=== PATIENT | male | born 1990 | race Caucasian/White ===

== ENCOUNTER 2017-07-16 09:52 | Emergency (ER) | payer BC ==
[2017-07-16 10:36] VITALS: BP 157/61
--- NOTE | 2017-07-16 11:06 | UC ---
Throat Pain/Nasal Torrey HPI - HPI Summary HPI Summary: Pt presents with sinus symptoms, earache, and ST. He tells me that 5 days ago he developed a ST and sinus pain/pressure/congestion. Over the next few days he began to have left ear pain and feeling as though sounds were muffled. He has been taking mucinex OTC with no relief. Denies headache, fever, chills, cough, SOB, chest pain, abdominal pain, N/V/D/C. - History of Current Complaint Chief Complaint: UCRespiratory Stated Complaint: SORE THROAT EAR PAIN COUGH NAUSEA Time Seen by Provider: 07/16/17 11:05 Hx Obtained From: Patient Severity: Moderate - Allergies/Home Medications Allergies/Adverse Reactions: Allergies Allergy/AdvReac Type Severity Reaction Status Date / Time Amoxicillin Allergy Unknown Unknown Verified 07/16/17 10:37 Reaction Details PMH/Surg Hx/FS Hx/Imm Hx Previously Healthy: Yes - Surgical History Surgical History: None - Family History Known Family History: Positive: Unknown - Social History Occupation: Employed Full-time Lives: Alone Alcohol Use: Occasionally Substance Use Type: None Smoking Status (MU): Current Every Day Smoker Type: eCigarettes Amount Used/How Often: daily use Length of Time of Smoking/Using Tobacco: since age 21 Review of Systems Constitutional: Negative Skin: Negative Eyes: Negative ENT: Sore Throat, Ear Ache, Nasal Discharge, Sinus Congestion, Sinus Pain/ Tenderness Respiratory: Negative Cardiovascular: Negative Gastrointestinal: Negative Neurological: Negative Psychological: Negative All Other Systems Reviewed And Are Negative: Yes Physical Exam Triage Information Reviewed: Yes Appearance: Well-Appearing, Well-Nourished Vital Signs: Initial Vital Signs Temp 98 F 07/16/17 10:32 Pulse 88 07/16/17 10:32 Resp 14 07/16/17 10:32 BP 157/61 07/16/17 10:32 Pulse Ox 99 07/16/17 10:32 Vital Signs Reviewed: Yes Eyes: Positive: Conjunctiva Clear. Negative: Conjunctiva Inflamed, Discharge ENT: Positive: Hearing grossly normal, Pharynx normal, Pharyngeal erythema, Nasal congestion, Nasal drainage, TM bulging - Left ear, TM red - Left ear, Sinus tenderness, Uvula midline. Negative: Tonsillar swelling, Tonsillar exudate, Muffled voice Neck: Positive: Supple, Nontender, No Lymphadenopathy Respiratory: Positive: Chest non-tender, Lungs clear, Normal breath sounds, No respiratory distress, No accessory muscle use Cardiovascular: Positive: RRR, No Murmur, Pulses Normal Neurological: Positive: Alert Psychological: Positive: Age Appropriate Behavior Skin: Negative: rashes Throat Pain/Nasal Course/Dx - Course Course Of Treatment: POC strep negative. Otitis media left ear. He is unsure his reaction to Amoxicillin, but has been told since childhood to avoid it. Will rx for zpak. - Differential Dx/Diagnosis Differential Diagnosis/HQI/PQRI: Influenza, Otitis Media, Pharyngitis, Tonsillitis, URI Provider Diagnoses: Otitis Media left ear Discharge - Discharge Plan Condition: Stable Disposition: HOME Prescriptions: Azithromycin TAB* [Zithromax TAB (Z-CHAPITO) 250 mg #6 tabs] 2 tab PO .TODAY, THEN 1 DAILY #1 chapito Patient Education Materials: Otitis Media (ED) Referrals: No Primary Care Phys,NOPCP [Primary Care Provider] - [facility] – [place] PHYSICIAN REFERRAL [Outside] - 2 Weeks Additional Instructions: If you develop a fever, SOB, chest pain, new or worsening symptoms - please call your PCP or go to the ED. Your blood pressure was high at todays visit. Please see your primary provider within 4 weeks for recheck and re-evaluation.
== END 2017-07-16 11:46 | disposition home or self-care (01) ==
LOC: UCEAST 09:52
DX: H66.92 Otitis media, unspecified, left ear (principal); Z72.89 Other problems related to lifestyle; Z72.0 Tobacco use
CPT/HCPCS: 87651; 99212; G0463

== ENCOUNTER 2018-01-02 10:37 | Emergency (ER) | payer BC, OTHER ==
[2018-01-02 11:01] VITALS: BP 134/84
--- NOTE | 2018-01-02 12:06 | UC ---
UC General HPI - HPI Summary HPI Summary: Patient to urgent care today with his mom. Patient took pre-workout Sunday afternoon, he slept very poorly Sunday night and also noted a weird sensation on his skin as well as a disassociated feeling. Sunday he felt much better attended some activities with his friends slept okay Sunday night this morning woke up feeling like his heart was racing. - History of Current Complaint Hx Obtained From: Patient Onset/Duration: Sudden Onset, Lasting Days - 3 Timing: Constant Pain Intensity: 0 Associated Signs & Symptoms: Positive: Other <Maria Teresa He - Last Filed: 01/02/18 12:34> <Herminia Wyman - Last Filed: 01/02/18 13:22> - History of Current Complaint Chief Complaint: UCAlteredMentalStatus Stated Complaint: PANIC ATTACKS Time Seen by Provider: 01/02/18 11:33 - Allergy/Home Medications Allergies/Adverse Reactions: Allergies Allergy/AdvReac Type Severity Reaction Status Date / Time amoxicillin Allergy Rash Verified 01/02/18 12:47 Home Medications: Home Medications NK [No Home Medications Reported] 01/02/18 [History Confirmed 01/02/18] PMH/Surg Hx/FS Hx/Imm Hx Previously Healthy: Yes - Surgical History Surgical History: Yes Surgery Procedure, Year, and Place: wisdom teeth extraction - Family History Family History: alabuse disorder in father - Social History Occupation: Employed Full-time Lives: Dormitory/Roommates Alcohol Use: Occasionally Substance Use Type: None Smoking Status (MU): Current Every Day Smoker Type: eCigarettes Amount Used/How Often: daily use Length of Time of Smoking/Using Tobacco: since age 21 <Maria Teresa He - Last Filed: 01/02/18 12:34> Review of Systems Constitutional: Negative Skin: Negative Eyes: Negative ENT: Negative Respiratory: Negative Cardiovascular: Palpitations Gastrointestinal: Negative Genitourinary: Negative Motor: Negative Neurovascular: Negative Musculoskeletal: Negative Neurological: Negative Psychological: Other - had out of body experience Sunday and some confusion -- this seemed to get a little better after eating Is Patient Immunocompromised?: No All Other Systems Reviewed And Are Negative: Yes <Maria Teresa He - Last Filed: 01/02/18 12:34> Physical Exam Triage Information Reviewed: Yes Appearance: Well-Appearing, No Pain Distress, Well-Nourished Vital Signs: Initial Vital Signs Temp 97.6 F 01/02/18 10:54 Pulse 64 01/02/18 10:54 Resp 18 01/02/18 10:54 BP 134/84 01/02/18 10:54 Pulse Ox 100 01/02/18 10:54 Vital Signs Reviewed: Yes Eye Exam: Normal Eyes: Positive: Conjunctiva Clear ENT Exam: Normal ENT: Positive: Normal ENT inspection, Hearing grossly normal. Negative: Trismus , Muffled voice, Hoarse voice Dental Exam: Normal Neck exam: Normal Neck: Positive: Supple, Nontender Respiratory Exam: Normal Respiratory: Positive: Chest non-tender, No respiratory distress Cardiovascular Exam: Normal Cardiovascular: Positive: RRR, Brisk Capillary Refill Musculoskeletal Exam: Normal Musculoskeletal: Positive: Strength Intact, No Edema Neurological Exam: Normal Neurological: Positive: Alert, Muscle Tone Normal Psychological Exam: Normal Skin Exam: Normal <Maria Teresa He - Last Filed: 01/02/18 12:34> Vital Signs: Initial Vital Signs Temp 97.6 F 01/02/18 10:54 Pulse 64 01/02/18 10:54 Resp 18 01/02/18 10:54 BP 134/84 01/02/18 10:54 Pulse Ox 100 01/02/18 10:54 <Herminia Wyman - Last Filed: 01/02/18 13:22> Course/Dx - Course Course Of Treatment: Reviewed case with Dr. Wyman. Will transfer to hospital with mother driving for evaluation of symptoms post ingesytion of "Pre work out " - Differential Dx - Multi-Symptom Provider Diagnoses: Ingestion of pre-work out/stimulant <Maria Teresa He - Last Filed: 01/02/18 12:34> Discharge - Sign-Out/Discharge Documenting (check all that apply): Discharge/Admit/Transfer - Billing Disposition and Condition Condition: STABLE Disposition: Home <Maria Teresa He - Last Filed: 01/02/18 12:34> - Billing Disposition and Condition Condition: STABLE Disposition: Home <Herminia Wyman - Last Filed: 01/02/18 13:22> - Discharge Plan Condition: Stable Disposition: HOME Referrals: No Primary Care Phys,NOPCP [Primary Care Provider] - Additional Instructions: David we are discharging you to the emergency department for evaluation of the ingestion of "pre- work out". This medication can cause problems with your kidneys and her electrolytes that you need to be evaluated for Attestation Statement User Type: Provider - I was available for consult. This patient was seen by the HAKEEM. The patient was not presented to, seen by, or examined by me. -Priya <Herminia Wyman - Last Filed: 01/02/18 13:22>
== END 2018-01-02 12:13 | disposition home or self-care (01) ==
LOC: UCEAST 10:37
DX: T50.995A Adverse effect of other drugs, medicaments and biological substances, initial encounter (principal); Y92.9 Unspecified place or not applicable; R00.0 Tachycardia, unspecified; Z88.0 Allergy status to penicillin; F17.210 Nicotine dependence, cigarettes, uncomplicated
CPT/HCPCS: 99212; G0463

== ENCOUNTER 2018-01-02 12:29 | Emergency (ER) | payer OTHER ==
[2018-01-02 14:43] LABS: ABS Basophils 0 10^3/ul (0-0.2); ABS Eosinophils 0 10^3/ul (0-0.6); ABS Lymphocytes 0.9 10^3/ul (1.0-4.8); ABS Monocytes 0.2 10^3/ul (0-0.8); ABS Neutrophils 6.1 10^3/ul (1.5-7.7); ABS Nucleated RBC 0 10^3/ul; Eosinophil % 0.1 % (0-6); Hematocrit 48 % (42-52); Hemoglobin 16.4 g/dl (14.0-18.0); Lymphocyte % 12.5 % (25-47); Mean Corpuscular HGB Conc 34 g/dl (31-36); Mean Corpuscular Hemoglobin 29 pg (27-31); Mean Corpuscular Volume 84 fL (80-94); Mean Platelet Volume 8.1 um3 (7.4-10.4); Nucleated Red Blood Cells % 0.1; Platelet Count 198 10^3/ul (150-450); Red Blood Count 5.67 10^6/ul (4.0-5.4); Red Cell Distribution Width 13 % (10.5-15); White Blood Count 7.2 10^3/ul (3.5-10.8)
[2018-01-02 15:05] LABS: EGFR Non-African American 90.4 (>60)
[2018-01-02] MEDS ORDERED: LORazepam TAB(*) 1 MG PO ONE (16:08)
[2018-01-02 16:20] LABS: Urine Appearance Clear; Urine Blood Negative (Negative); Urine Color Straw; Urine Ketones Negative (Negative); Urine Protein Negative (Negative); Urine Specific Gravity 1.006 (1.010-1.030); Urine Urobilinogen Negative (Negative)
[2018-01-02 16:22] VITALS: BP 121/78
--- NOTE | 2018-01-03 11:48 | ED ---
Dk Rodriguez Angela, scribed for Richard Chavarria MD on 01/02/18 at 1337 . Psychiatric Complaint - HPI Summary HPI Summary: This pt is a 27 y/o [facility] anxiety and panic attacks since 2 days ago. Pt reports 2 days ago he had a routine day where he worked all day and cooked dinner. He notes that he took a nap and woke up late at 20:15, he remembered he had to get to the gym before they closed at 21:00. Pt took a pre work out supplement that gives him more energy prior to going to the gym. At the gym the pt crammed a 1 hour work out into a 30 minute work out. Pt then went home and got into the shower. He notes he recalls the water from the shower giving him a weird sensation and being cold. After his shower, the pt felt confused, anxious, and delusional. Pt called his mother and she told him he had a hypoglycemic episode. Pt ate some food and popsicle. That night pt only slept for 2 hours. The next day (yesterday) pt worked all day and ran some errands. Pt states he felt better and slept 8 hours. This morning pt notes "I began panicking over nothing and could not control it." Denies chest pain, palpitations, SOB. Denies SI or HI thoughts/plan. He does not know what specific ingredients are in the supplements he took. Pt had stopped taking these pre work out supplements for 1 month and started taking it again 1 week ago, but not the same brand (now takes his roommate's supplements). Pt has taken his roommate's supplements 4-5 times prior to 2 days ago, without any issues. Denies any PMHx. He does not take any current medications. - History Of Current Complaint Chief Complaint: EDGeneral Time Seen by Provider: 01/02/18 13:30 Hx Obtained From: Patient Onset/Duration: Lasting Days, Still Present Timing: Days Severity Currently: Moderate Character: Anxious Aggravating Factor(s): Nothing Alleviating Factor(s): Nothing Associated Signs And Symptoms: Positive: Confused, Paranoid Behavior Related History: Negative For: Prior Psychiatric Issues Has Suicidal: Denies: Thoughts Has Homicidal: Denies: Thoughts, With A Plan Recent Stressor(s): s/p tking pre work out supplement - Allergies/Home Medications Allergies/Adverse Reactions: Allergies Allergy/AdvReac Type Severity Reaction Status Date / Time amoxicillin Allergy Rash Verified 01/02/18 12:47 PMH/Surg Hx/FS Hx/Imm Hx Endocrine/Hematology History: Denies: Hx Diabetes Cardiovascular History: Denies: Hx Hypertension - Surgical History Surgery Procedure, Year, and Place: wisdom teeth extraction Infectious Disease History: No Infectious Disease History: Denies: Traveled Outside the [place] in Last 30 Days - Family History Known Family History: Negative: Diabetes Family History: FHx: alcoholism, thyroid issues - Social History Alcohol Use: Occasionally Substance Use Type: Reports: None Smoking Status (MU): Current Every Day Smoker Type: eCigarettes Amount Used/How Often: daily use Length of Time of Smoking/Using Tobacco: since age 21 Review of Systems Negative: Fever, Chills Eyes: Negative Negative: Palpitations, Chest Pain Negative: Shortness Of Breath Musculoskeletal: Negative Skin: Negative Positive: Anxious. Negative: Other - SI or HI thoughts/plan All Other Systems Reviewed And Are Negative: Yes Physical Exam - Summary Physical Exam Summary: VITAL SIGNS: Reviewed. GENERAL: Patient is a well-developed and nourished male. Patient is not in any acute respiratory distress. HEAD AND FACE: No signs of trauma. No ecchymosis, hematomas or skull depressions. No sinus tenderness. EYES: PERRLA, EOMI x 2, No injected conjunctiva, no nystagmus. EARS: Hearing grossly intact. Ear canals and tympanic membranes are within normal limits. MOUTH: Oropharynx within normal limits. NECK: Supple, trachea is midline, no adenopathy, no JVD, no carotid bruit, no c- spine tenderness, neck with full ROM. CHEST: Symmetric, no tenderness at palpation LUNGS: Clear to auscultation bilaterally. No wheezing or crackles. CVS: Regular rate and rhythm, S1 and S2 present, no murmurs or gallops appreciated. ABDOMEN: Soft, non-tender. No signs of distention. No rebound no guarding, and no masses palpated. Bowel sounds are normal. EXTREMITIES: FROM in all major joints, no edema, no cyanosis or clubbing. NEURO: Alert and oriented x 3. No acute neurological deficits. Speech is normal and follows commands. SKIN: Dry and warm Triage Information Reviewed: Yes Vital Signs On Initial Exam: Initial Vitals Temp Pulse Resp BP Pulse Ox 98.7 F 82 20 139/88 100 01/02/18 12:38 01/02/18 12:38 01/02/18 12:38 01/02/18 12:38 01/02/18 12:38 Vital Signs Reviewed: Yes Diagnostics - Vital Signs Vital Signs Temp Pulse Resp BP Pulse Ox 01/02/18 12:38 98.7 F 82 20 139/88 100 - Laboratory Result Diagrams: 01/02/18 14:31 01/02/18 14:31 Lab Statement: Any lab studies that have been ordered have been reviewed, and results considered in the medical decision making process. Course/Dx - Course Assessment/Plan: Pt is a 27 y/o male who presents with intermittent anxiety and panic attacks since 2 days ago after taking pre-work out supplements. Test results without any significant abnormalities. Pt was given Ativan for anxiety and his symptoms improved. Pt will be discharged home with follow up from PCP. He will be given a prescription for Atarax. I discussed all the findings and test results with the patient. All questions were answered to patient satisfaction. There were no further complaints or concerns. He is instructed to return to the ED for any worsening or new symptoms. Pt is hemodynamically stable, alert and oriented x3. - Differential Dx/Clinical Impression Provider Diagnosis: Anxiety Discharge - Sign-Out/Discharge Documenting (check all that apply): Discharge/Admit/Transfer - Discharge - Discharge Plan Condition: Stable Disposition: HOME Prescriptions: hydrOXYzine HCL TAB* [Atarax 25 MG TAB*] 25 mg PO TID PRN #30 tab PRN Reason: Anxiety Patient Education Materials: Anxiety (ED) Referrals: [facility] [place] [facility] [Outside] Additional Instructions: Please establish a primary care provider and follow up. RETURN TO THE ED FOR ANY NEW OR WORSENING SYMPTOMS. The documentation as recorded by the Dk waters Angela accurately reflects the service I personally performed and the decisions made by me, Richard Chavarria MD.
== END 2018-01-02 16:20 | disposition home or self-care (01) ==
LOC: ED 12:29
DX: F41.9 Anxiety disorder, unspecified (principal); Z88.2 Allergy status to sulfonamides; Z88.3 Allergy status to other anti-infective agents
CPT/HCPCS: 36415; 80053; 80307; 80320; 81003; 82607; 84443; 85025; 99282; A9270-GY; G0480